=== PATIENT | female | born 1955 | race Caucasian/White ===

== ENCOUNTER 2023-06-28 13:02 | Emergency (ER) | payer MEDICARE, BC, SELFPAY ==
[2023-06-28 13:15] VITALS: BP 154/92
--- NOTE | 2023-06-28 17:12 | ED.GENMED ---
History of Present Illness
General
Chief Complaint: Back Pain
Time Seen by Provider: 06/28/23 16:15
Travel History
Have you had any contact with someone who has COVID-19?: No
Do you have any symptoms of coronavirus? Fever > 100 degrees, chills, cough, shortness of breath, sore throat, loss of taste or smell, muscle aches, or headache?: No
History of Present Illness
History of Present Illness:
67-year-old female presents to the emergency department for evaluation of acute on chronic right-sided low back pain rating down the right leg. Pain is worsened over the past 2 weeks. She is an established patient with Dr. Whitaker, states that
she was told she needs a lumbar surgery but she has declined in the past. She is not currently on any maintenance medications for this pain. Denies any loss of bladder or bowel function, denies any difficulty ambulating. No night sweats or weight
loss
Past History
Past History
ED Past Medical History: Cancer (Breast CA) and HTN
ED Past Surgical History: Appendectomy, Cholecystectomy, Gynecological (Lumpectomy) and Orthopedic (cervical and lumbar fusion.)
Social History
Tobacco: Non-smoker
Alcohol: None
Personal:
Living: with family
Review of Systems
Review of Systems
Allergies reviewed?: Yes
All Other Systems: ROS reviewed and negative except as documented in HPI and ROS
Phy Exam
Physical Exam
Physical Exam:
GEN: Well appearing, NAD, WDWN
HEENT: Oral mucosa moist, no scleral icterus
Cardiac: Regular rate
Lung: No respiratory distress, no tachypnea
MSK: No gross deformity or injuries. Reproducible tenderness to the right sciatic notch, positive straight leg raise on the right
Skin: Good color, no pallor or jaundice, no rashes
Neuro: AO x3, moves all extremities freely
Psych: Calm, cooperative
Course
Vital Signs
Initial and Last Documented VS:
Initial Vital Signs
Temp Pulse Resp BP Pulse Ox
98.0 F 84 16 154/92 98
06/28/23 13:15 06/28/23 13:15 06/28/23 13:15 06/28/23 13:15 06/28/23 13:15
Last Documented Vital Signs
Temp Pulse Resp BP Pulse Ox
98.0 F 84 16 154/92 98
06/28/23 13:15 06/28/23 13:15 06/28/23 13:15 06/28/23 13:15 06/28/23 13:15
MDM/Problems Addressed
MDM/Problems Addressed:
Patient has no new focal neurologic deficits, will start supportive medications and recommend outpatient pain management follow-up
*Critical Care Note
Total Time (30-74mins, 75-104mins- exclusive of procedures): Not Applicable
ED Attending Note
-
Portions of this chart may have been created with voice recognition software.� Occasional wrong word or��sound alike� substitutions may have occurred due to the inherent limitations of voice recognition software.
Discharge Plan
Departure
Patient Disposition: Home (Routine Discharge)
Date of Disposition: 06/28/23
Time of Disposition: 17:12
Patient with high blood pressure during this ER visit?: No
Discharge Problem:
Acute exacerbation of chronic low back pain
Instructions: Radiculopathy (DC)
Prescriptions:
New
oxycodone 5 mg tablet
5 mg PO Q8H PRN (Reason: Pain) Qty: 10 0RF
diclofenac sodium 75 mg tablet,delayed release (DR/EC)
75 mg PO BID Qty: 30 0RF
No Action
venlafaxine 75 MG capsule,extended release 24hr
75 mg PO BID
oxybutynin chloride 15 MG tablet extended release 24hr
15 mg PO DAILY
atenolol 25 MG tablet
25 mg PO DAILY
gabapentin 300 MG capsule
600 mg PO TID
letrozole 2.5 MG tablet
2.5 mg PO DAILY
oxycodone-acetaminophen 5 MG/325 MG tablet
1 tab PO Q4HPRN PRN (Reason: Pain) Qty: 10 0RF
cephalexin 500 MG capsule
500 mg PO BID Qty: 13 0RF
Referrals:
Goe Whitaker MD [Active] -
Dorcas Hill DO [Family Provider] -
Interventions
Interventions:
*Risk Screen - Suicide Last Done: 06/28/23 15:46
*General Assessment Last Done: 06/28/23 17:20
*Neglect/Abuse Screening Last Done: 06/28/23 15:46
ED- Fall Risk Assessment Last Done: 06/28/23 17:20
*ED COVID-19 Vaccine History Last Done: 06/28/23 13:15
*Nursing Disposition Last Done: 06/28/23 17:20
ED-Musculoskeletal Assessment Last Done: 06/28/23 17:18
Discharge Date and Time
Discharge Date/Time: 06/28/23 17:34
== END 2023-06-28 17:34 | disposition home or self-care (01) ==
LOC: EMR 13:02
PROVIDERS: EMERGENCY PHYSICIAN Emergency Medicine; FAMILY PHYSICIAN Student in an Organized Health Care Education/Training Program
DX: M54.50 Low back pain, unspecified (principal); G89.29 Other chronic pain
CPT/HCPCS: 99283

== ENCOUNTER → 2023-08-01 14:06 | Outpatient (REF) | payer MEDICARE, BC, SELFPAY | LOC: HWRAD 14:06 | PROVIDERS: ATTENDING PHYSICIAN Student in an Organized Health Care Education/Training Program | DX: Z85.3 Personal history of malignant neoplasm of breast (principal); M81.0 Age-related osteoporosis without current pathological fracture; Z12.31 Encounter for screening mammogram for malignant neoplasm of breast | CPT/HCPCS: 77063; 77067; 77080 ==

== ENCOUNTER 2023-09-15 13:51 | Emergency (ER) | payer MEDICARE, BC, SELFPAY ==
[2023-09-15 13:55] VITALS: BP 159/74
--- NOTE | 2023-09-15 16:55 | ED.GENMED ---
History of Present Illness
General
Chief Complaint: Back Pain
Source: patient
Exam Limitations: none
Time Seen by Provider: 09/15/23 16:05
Nursing documentation reviewed up to this point in time: agreed with
Travel History
Have you had any contact with someone who has COVID-19?: No
Do you have any symptoms of coronavirus? Fever > 100 degrees, chills, cough, shortness of breath, sore throat, loss of taste or smell, muscle aches, or headache?: No
History of Present Illness
History of Present Illness:
68-year-old female presents to the ER for evaluation of chronic back pain. She reports she is a patient of Dr. Whitaker and has had chronic pain which radiates to her right leg. She had a spinal stimulator but that did not work in the next plan
was for surgery. She in fact did have a spinal stimulator removed on Monday. She is on Venlafaxine , diclofenac allergic to oxycodone . She was just seen here in the ED for same back pain June 28. At that time she was prescribed
oxycodone and diclofenac but reports she has since become allergic to oxycodone.
Patient reports this is the same pain which radiates from her right buttock down her right leg. She denies any bowel bladder incontinence denies any recent trauma fall. Denies any fever or chills.
Past History
Past History
ED Past Medical History: Cancer (Breast CA) and HTN
ED Past Surgical History: Appendectomy, Cholecystectomy, Gynecological (Lumpectomy) and Orthopedic (cervical and lumbar fusion.)
Social History
Tobacco: Non-smoker
Alcohol: None
Personal:
Living: with family
Review of Systems
Review of Systems
Allergies reviewed?: Yes
All Other Systems: ROS reviewed and negative except as documented in HPI and ROS
Constitutional: Reports no symptoms
Respiratory: Reports no symptoms
Cardiac: Reports no symptoms
ABD/GI: Reports no symptoms
Musculoskeletal: Reports back pain (right sided back pain )
Skin: Reports no symptoms
Neurological: Reports no symptoms
Psychiatric: Reports no symptoms
Phy Exam
General Physical Exam
General Presentation: no apparent distress
General age: appears stated age
General Skin: warm and dry
General Habitus: normal
General Mental: alert
General Hydration: appears well hydrated
Neurological Exam
Neurological Exam: alert, oriented x3, no motor deficits, no sensory deficits and other (Intact sensation to bilateral lower extremities normal dorsiflexion plantarflexion)
Denis Coma Scale
Eye Opening: Spontaneous
Verbal Response: Oriented
Motor Response: Obeys Commands
GCS Total Score: 15
Musculoskeletal Exam
Musculoskeletal Exam: other (tender to right buttock region ; strong pulses to b/ l l/e )
Skin Exam
Skin Exam: normal color and warm/dry
Psychiatric Exam
Psychiatric Exam: normal mood/affect
Course
Orders/Labs/Results
Orders:
Orders
09/15/23 17:35
Dexamethasone Sod Phosphate [Decadron] 10 mg IM NOW STA
Vital Signs
Initial and Last Documented VS:
Initial Vital Signs
Temp Pulse Resp BP Pulse Ox
98.6 F 85 18 159/74 100
09/15/23 13:55 09/15/23 13:55 09/15/23 13:55 09/15/23 13:55 09/15/23 13:55
Last Documented Vital Signs
Temp Pulse Resp BP Pulse Ox
98.6 F 85 18 159/74 100
09/15/23 13:55 09/15/23 13:55 09/15/23 13:55 09/15/23 13:55 09/15/23 13:55
*Critical Care Note
Total Time (30-74mins, 75-104mins- exclusive of procedures): Not Applicable
Data Reviewed
Review of Other/Old Records Reveals: Other (previous ED visit )
ED Attending Note
-
Portions of this chart may have been created with voice recognition software.� Occasional wrong word or��sound alike� substitutions may have occurred due to the inherent limitations of voice recognition software.
Discharge Plan
Departure
Patient Disposition: Home (Routine Discharge)
Date of Disposition: 09/15/23
Time of Disposition: 18:15
Patient with high blood pressure during this ER visit?: Yes
Condition: Fair
Covid-19: Not Applicable
Discharge Problem:
Chronic back pain, Sciatica
Instructions: Low Back Pain (DC), Sciatica (DC), BLOOD PRESSURE
Prescriptions:
New
prednisone 10 mg Tablet
See Rx Instructions .ROUTE .COMPLEX Qty: 30 0RF
Rx Instructions:
Take By Mouth:
40 mg daily x3 days, 30 mg daily x3 days,
20 mg daily x3 days, 10 mg daily x3 days.
No Action
venlafaxine 75 MG capsule,extended release 24hr
75 mg PO BID
oxybutynin chloride 15 MG tablet extended release 24hr
15 mg PO DAILY
atenolol 25 MG tablet
25 mg PO DAILY
gabapentin 300 MG capsule
600 mg PO TID
letrozole 2.5 MG tablet
2.5 mg PO DAILY
oxycodone-acetaminophen 5 MG/325 MG tablet
1 tab PO Q4HPRN PRN (Reason: Pain) Qty: 10 0RF
cephalexin 500 MG capsule
500 mg PO BID Qty: 13 0RF
oxycodone 5 mg tablet
5 mg PO Q8H PRN (Reason: Pain) Qty: 10 0RF
diclofenac sodium 75 mg tablet,delayed release (DR/EC)
75 mg PO BID Qty: 30 0RF
Referrals:
Geo Whitaker MD [Active] -
Dorcas Hill DO [Family Provider] -
Activity Restrictions/Additional Instructions:
As discussed a prescription for steroids was sent to your pharmacy. Start tomorrow as you were given the first dose here in the ER. Follow-up with your instructor painting Dr. Whitaker call Monday morning to make a sooner appointment return
if any worsening of symptoms.
Interventions
Interventions:
*Risk Screen - Suicide Last Done: 09/15/23 13:55
*General Assessment Last Done: 09/15/23 13:55
*Neglect/Abuse Screening Last Done: 09/15/23 13:55
ED- Fall Risk Assessment Last Done: 09/15/23 14:48
*ED COVID-19 Vaccine History Last Done: 09/15/23 14:48
ED-Musculoskeletal Assessment Last Done: 09/15/23 14:48
Discharge Date and Time
Print Language: ARABIC
[2023-09-15] MEDS: DECADRON 10 MG IM (17:38)
== END 2023-09-15 18:29 | disposition home or self-care (01) ==
LOC: EMR 13:51
PROVIDERS: EMERGENCY PHYSICIAN Emergency Medicine; FAMILY PHYSICIAN Student in an Organized Health Care Education/Training Program
DX: M54.31 Sciatica, right side (principal); G89.29 Other chronic pain; M54.9 Dorsalgia, unspecified; I10 Essential (primary) hypertension
CPT/HCPCS: 99284; 96372